=== PATIENT | female | born 1995 | race Caucasian/White ===

== ENCOUNTER 2018-05-18 14:55 | Observation (INO) | payer MEDICAID ==
[~2018-05-18] VITALS: Ht 162.6 cm; Wt 57.7 kg
[2018-05-18] VITALS (9 sets, daily range): BP systolic 123–173; BP diastolic 82–108; BMI 21.8
[~2018-05-18 14:55] MED LIST: ACETAMINOPHEN500 M1 PO; CEFTIN500 MG PO; MOTRIN600 MG PO; NIFEREX-150 F1 UDCAP PO; PERCOCET 5/3251 TA1 PO; PRENATABS RX TA1 TAB; PRENATABS RX TA1 TAB PO
[2018-05-18] MEDS ORDERED: CELEXA10 MG PO (15:08)
[2018-05-18 15:45] LABS: BASOPHILS 0.3 % (0-2); EOSINOPHILS 0.8 % (0-7); HEMATOCRIT 35.1 % (36.0-48.0); HEMOGLOBIN 11.7 g/dL (12-16); IMMATURE GRANULOCYTES 0.5 % (0-5); LYMPHOCYTES 18.8 % (15-50); MCH 29.6 pg (26.0-34.0); MCHC 33.3 g/dL (31.0-37.0); MCV 88.9 fL (80.0-100.0); MONOCYTES 6.9 % (2-11); NEUTROPHILS 72.7 % (40-80); RBC 3.95 10x6/uL (4.00-5.40); RDW 15.3 % (11.5-14.5); WBC 11.8 10x3/uL (4.8-10.8)
[2018-05-18 15:46] LABS: PLATELET COUNT 247 10x3/uL (130-400)
[2018-05-18 16:11] LABS: ALBUMIN 2.3 g/dL (3.4-5.0); ALKALINE PHOSPHATASE 267 U/L (46-116); ALT (SGPT) 65 U/L (10-68); BILIRUBIN - TOTAL 0.54 mg/dL (0.2-1.3); CALC OSMOLALITY 272 mosm/kg (275-300); CALCIUM 8.3 mg/dL (8.5-10.1); CHLORIDE - SERUM 104 mmol/L (98-107); CREATININE - SERUM 0.8 mg/dL (0.6-1.3); GLUCOSE 79 mg/dL (74-106); PROTEIN - SERUM 6.5 g/dL (6.4-8.2); SODIUM 138 mmol/L (136-145); UREA NITROGEN 8 mg/dL (7-18); eGFR NON AFRICAN AMERICAN > 90 mL/min (90-120)
[2018-05-18 16:17] LABS: PRO BNP 173 pg/mL (0-125)
[2018-05-18 16:56] LABS: APPEARANCE CLOUDY (CLEAR); BILIRUBIN NEGATIVE (NEGATIVE); COLOR STRAW (YELLOW); GLUCOSE NEGATIVE (NEGATIVE); KETONE LARGE mg/dL (NEGATIVE); NITRITE NEGATIVE (NEGATIVE); PROTEIN 2+ mg/dL (NEGATIVE); SPECIFIC GRAVITY 1.005 (1.005-1.020); UROBILINOGEN NORMAL (NORMAL)
[2018-05-18 16:57] LABS: BACTERIA MANY /hpf (NONE SEEN); EPITHELIAL CELLS 0-5 /hpf (0-5); MUCUS <1+ /lpf (NONE SEEN); WHITE CELLS - URINE 25-50 /hpf (0-5)
[2018-05-18 16:59] LABS: HCG URINE POSITIVE (NEGATIVE)
[2018-05-18 17:01] LABS: UDS - AMPHET POSITIVE QUAL (NEGATIVE); UDS - BARB NEGATIVE QUAL (NEGATIVE); UDS - BENZO NEGATIVE QUAL (NEGATIVE); UDS - COCAINE NEGATIVE QUAL (NEGATIVE); UDS - OPIATE NEGATIVE QUAL (NEGATIVE); UDS - PCP NEGATIVE QUAL (NEGATIVE); UDS - THC NEGATIVE QUAL (NEGATIVE)
--- NOTE | 2018-05-18 19:40 | NUR ---
REC'D PT FROM ER TO ROOM 1278. PT TO BED, ALERT AND ORIENTED. PT IS A 23Y/O DELIVERED 14 DAYS AGO AT [facility]. PT C/O SWELLING TO BLE AND ELEVATED BPS. RESP EVEN AND UNLABORED. LUNGS CLEAR BILATERALLY. BOWEL SOUNDS PRESENT X4. PITTING EDEMA NOTED TO BLE. VS TAKEN, BP IS 168/116. PT DENIES HEADACHE OR BLURRED VISION. REPORTED SHE HAD SOME SWELLING PRIOR TO DELIVERY BUT HAS NEVER HAD BLOOD PRESSURE ISSUES. PT IS CALM BUT RESTLESS AND HAS TWITCHING MOVEMENTS. PT HAS A FRIEND WITH HER THAT IS SUPPORTIVE. SANDWICH TRAY AND COLA PROVIDED PER PT REQUEST. TRUONG DAHL
--- NOTE | 2018-05-18 20:15 | NUR ---
DR. GARCIA NOTIFIED OF BPS SINCE ARRIVING ON UNIT. ORDERED LABETALOL 100MG AND CALL BACK WITH BPS AFTER AN HOUR.
[2018-05-18 21:06] LABS: BASOPHILS 0.2 % (0-2); EOSINOPHILS 1.8 % (0-7); HEMATOCRIT 32.6 % (36.0-48.0); HEMOGLOBIN 10.8 g/dL (12-16); IMMATURE GRANULOCYTES 0.4 % (0-5); LYMPHOCYTES 21.9 % (15-50); MCH 29.7 pg (26.0-34.0); MCHC 33.1 g/dL (31.0-37.0); MCV 89.6 fL (80.0-100.0); MEAN PLATELET VOLUME 8.6 fL (7.4-10.4); MONOCYTES 8.6 % (2-11); NEUTROPHILS 67.1 % (40-80); PLATELET COUNT 209 10x3/uL (130-400); RBC 3.64 10x6/uL (4.00-5.40); RDW 15.5 % (11.5-14.5); WBC 9.9 10x3/uL (4.8-10.8)
--- NOTE | 2018-05-18 21:33 | NUR ---
CALLED BP AND CBC RESULTS TO DR. GARCIA. ORDERED LABETALOL 100MG TID AND CALL BACK WITH REST OF LABS.
[2018-05-18 21:37] LABS: ALBUMIN 1.8 g/dL (3.4-5.0); ALKALINE PHOSPHATASE 217 U/L (46-116); ALT (SGPT) 55 U/L (10-68); BILIRUBIN - TOTAL 0.38 mg/dL (0.2-1.3); CALC OSMOLALITY 271 mosm/kg (275-300); CARBON DIOXIDE 25.1 mmol/L (21.0-32.0); CHLORIDE - SERUM 104 mmol/L (98-107); CREATININE - SERUM 0.7 mg/dL (0.6-1.3); GLUCOSE 106 mg/dL (74-106); POTASSIUM - SERUM 3.4 mmol/L (3.5-5.1); PROTEIN - SERUM 5.4 g/dL (6.4-8.2); SODIUM 137 mmol/L (136-145); UREA NITROGEN 7 mg/dL (7-18); eGFR NON AFRICAN AMERICAN > 90 mL/min (90-120)
--- NOTE | 2018-05-18 23:36 | NUR ---
VS TAKEN, BP STABILIZING. PT ABLE TO REST. NO NEEDS AT THIS TIME. TRUONG DAHL
--- NOTE | 2018-05-19 01:00 | NUR ---
ROOM CHECK, PT AWAKE REPORTS SHE GOT UP TO VOID. THE URINE INTERNET PROGRAMMER HAD BEEN PLACED IN TRASH, UNABLE TO MEASURE. PT STATED THERE WAS A LOT AND STATES SHE FEELS MUCH BETTER. EDEMA HAS IMPROVED TO BLE AND NO LONGER PITTING. IV TO R HAND IS SALINE LOCKED. DENIES NEEDS AT THIS TIME. TRUONG DAHL
--- NOTE | 2018-05-19 01:23 | NUR ---
PT'S S/O HERE TO VISIT.
[2018-05-19 04:31] VITALS: BP 109/64
--- NOTE | 2018-05-19 04:31 | NUR ---
PT SLEEPING, AWAKENS EASILY TO VERBAL STIMULI. VS TAKEN AND WNL. DENIES NEEDS. TRUONG DAHL
--- NOTE | 2018-05-19 05:20 | NUR ---
DR. GARCIA ON UNIT MAKING ROUNDS. DISCUSSED PLAN OF CARE WITH PT AND ENCOURAGED HER TO FOLLOW UP WITH HER PHYSICIAN UPON DISCHARGE TO MONITOR BP. WILL CALL IN PRESCRIPTION FOR LABETALOL AND STRESS IMPORTANCE TO PT THAT SHE PICK MEDICATION UP AND TAKE IT DIRECTED. PT VERBALIZED UNDERSTANDING. TRUONG DAHL
[2018-05-19 05:45] VITALS: Ht 162.6 cm; Wt 57.7 kg
[2018-05-19 06:58] LABS: BASOPHILS 0.2 % (0-2); HEMATOCRIT 33.5 % (36.0-48.0); HEMOGLOBIN 10.8 g/dL (12-16); IMMATURE GRANULOCYTES 0.7 % (0-5); LYMPHOCYTES 20.1 % (15-50); MCHC 32.2 g/dL (31.0-37.0); MCV 89.8 fL (80.0-100.0); MONOCYTES 7.7 % (2-11); NEUTROPHILS 69.3 % (40-80); PLATELET COUNT 240 10x3/uL (130-400); RBC 3.73 10x6/uL (4.00-5.40); RDW 15.6 % (11.5-14.5); WBC 8.7 10x3/uL (4.8-10.8)
[2018-05-19 07:20] LABS: ALBUMIN 1.8 g/dL (3.4-5.0); ALKALINE PHOSPHATASE 193 U/L (46-116); ALT (SGPT) 49 U/L (10-68); BILIRUBIN - TOTAL 0.32 mg/dL (0.2-1.3); CALC OSMOLALITY 273 mosm/kg (275-300); CALCIUM 7.8 mg/dL (8.5-10.1); CHLORIDE - SERUM 105 mmol/L (98-107); CREATININE - SERUM 0.8 mg/dL (0.6-1.3); GLUCOSE 104 mg/dL (74-106); POTASSIUM - SERUM 3.8 mmol/L (3.5-5.1); PROTEIN - SERUM 5.2 g/dL (6.4-8.2); SODIUM 138 mmol/L (136-145); UREA NITROGEN 7 mg/dL (7-18); eGFR NON AFRICAN AMERICAN > 90 mL/min (90-120)
--- NOTE | 2018-05-19 07:30 | NUR ---
to room for am assessment pt resting soundly with no distress noted left undisturbed at this time.
--- NOTE | 2018-05-19 08:15 | NUR ---
attempted to wake pt up for 2nd time, ask that she call for nurse when she is more wake
[2018-05-19 09:15] VITALS: BP 134/66
--- NOTE | 2018-05-19 09:15 | NUR ---
pt calls out requesting 2 cola and glasses of ice. pt and sig other eating breakfast.
[2018-05-19] MEDS ORDERED: NORMODYNE / TR100 MG PO (10:01)
--- NOTE | 2018-05-19 10:11 | NUR ---
PT EXECUTIVE PRODUCER. LIGHT. REQUESTS AND RECEIVES LINENS AND TOILETRIES FOR SHOWER.
--- NOTE | 2018-05-19 10:45 | NUR ---
Saline lock removed from left hand with cath intact. Verbal and written discharge gone over with pt without quesitons or concerns. States understanding of new med for her blood pressure. Amb off unit with sig other with no distress noted.
== END 2018-05-19 10:45 | disposition home or self-care (01) ==
LOC: D.ER 14:55 → D.EDHOLD 18:49 → OBSVTIME 18:49 → D.LD 18:49
PROVIDERS: Emergency Medicine; ADMIT Obstetrics & Gynecology
DX: O14.25 HELLP syndrome, complicating the puerperium (principal); Z72.0 Tobacco use; F15.90 Other stimulant use, unspecified, uncomplicated